=== PATIENT | female | born 1970 | race Two or more races ===

== ENCOUNTER 2023-09-10 13:33 | Emergency (ER) | payer MEDICAID, OTHER ==
[~2023-09-10] VITALS: Ht 160 cm; Wt 95.3 kg
[2023-09-10 17:19] VITALS: BP 131/100; PULSE 94; RESP 18; TEMP 98; O2SAT 97
== END 2023-09-10 17:21 | disposition home or self-care (01) ==
LOC: ER 13:33
DX: M77.31 Calcaneal spur, right foot (principal); Z88.2 Allergy status to sulfonamides; X58.XXXA Exposure to other specified factors, initial encounter; Y93.39 Activity, other involving climbing, rappelling and jumping off; Y92.89 Other specified places as the place of occurrence of the external cause; Y99.8 Other external cause status
CPT/HCPCS: 73630